=== PATIENT | female | born 1985 | race Caucasian/White ===

== ENCOUNTER 2020-04-06 22:20 | Emergency (ER) | payer SELFPAY ==
[~2020-04-06] VITALS: Ht 167.6 cm; Wt 56.6 kg
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
[2020-04-06 22:38] VITALS: BP 115/61
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
[2020-04-07] MEDS ORDERED: LIDOCAINE 2% 20 ML VIAL. ONE (00:21)
[2020-04-07] MEDS ORDERED: LIDOCAINE 2% PF 5 ML VIAL. INJ ONE (01:00)
[2020-04-07] MEDS ORDERED: HYDROcodone/APAP 5/325MG 1 TAB TABLET PO ONE (01:00)
--- NOTE | 2020-04-07 01:10 | RAD ---
XR FINGER(S)_RIGHT 2+VIEWS 04/07/2020 12:38 AM INDICATION: Reduction of right PTC finger dislocation COMPARISON: Right hand radiograph 04/06/2020 TECHNIQUE: 3 views of the right fifth digit are provided. FINDINGS/ IMPRESSION: 1. Interval reduction of the proximal interphalangeal joint of the fifth digit. 2. There is a ossific fragment along the volar aspect of the proximal interphalangeal joint of the fi fth digit measuring 3 mm suggestive of a volar plate avulsion fracture of the base of the middle phal anx. Alternatively, donor site could be the head of the proximal phalanx of the fifth digit. Regional soft tissue swelling is present. Electronically signed by: Amber Kelly MD (04/07/2020 1:08 AM) [facility]
== END 2020-04-07 00:55 | disposition home or self-care (01) ==
LOC: ER 22:20
DX: S62.616A Displaced fracture of proximal phalanx of right little finger, initial encounter for closed fracture (principal); W18.39XA Other fall on same level, initial encounter; Y93.89 Activity, other specified; Y92.89 Other specified places as the place of occurrence of the external cause; Y99.8 Other external cause status
CPT/HCPCS: 26725; 73130; 73140; 99284; J2001

== ENCOUNTER 2020-05-24 16:26 | Emergency (ER) | payer OTHER ==
[~2020-05-24] VITALS: Ht 167.6 cm; Wt 56.6 kg
[2020-05-24] MEDS ORDERED: CYCL-331 PO (19:47)
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
[2020-05-24] MEDS ORDERED: HYDROcodone/APAP 5/325MG 1 TAB TABLET PO ONE (20:00)
[2020-05-24] MEDS ORDERED: CYCLOBENZAPRINE 10 MG TABLET. PO ONE (20:00)
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
[2020-05-24] MEDS ORDERED: HYDR-2155 PO (21:32)
[2020-05-24 21:50] VITALS: BP 154/77
== END 2020-05-24 21:50 | disposition home or self-care (01) ==
LOC: ER 16:26
DX: S32.029A Unspecified fracture of second lumbar vertebra, initial encounter for closed fracture (principal); S32.039A Unspecified fracture of third lumbar vertebra, initial encounter for closed fracture; M54.2 Cervicalgia; Z90.89 Acquired absence of other organs; Z98.51 Tubal ligation status; V89.2XXA Person injured in unspecified motor-vehicle accident, traffic, initial encounter; Y93.89 Activity, other specified; Y92.89 Other specified places as the place of occurrence of the external cause; Y99.8 Other external cause status
CPT/HCPCS: 70450; 72125; 72131; 99285